=== PATIENT | female | born 1950 | race Caucasian/White ===

== ENCOUNTER → 2021-03-02 | Day surgery (SDC) | payer OTHER ==
[~2021-03-02] VITALS: Ht 154.9 cm; Wt 46.7 kg
[~2021-03-02] MED LIST: ASPIRIN EC81 MG PO; CALCIUM500 M1 PO; EUTHYROX75 MCG PO; LOSARTAN POTASS25 MG PO; MVI-1210 ML PO; VITAMIN D310 MC2 PO
== END | disposition home or self-care (01) ==
LOC: FAS 12:40
DX: H26.493 Other secondary cataract, bilateral (principal); I10 Essential (primary) hypertension; G43.909 Migraine, unspecified, not intractable, without status migrainosus

== ENCOUNTER → 2021-03-30 | Day surgery (SDC) | payer OTHER ==
[~2021-03-30] VITALS: Ht 154.9 cm; Wt 46.7 kg
== END | disposition home or self-care (01) ==
LOC: FAS 12:45
DX: H26.493 Other secondary cataract, bilateral (principal); I10 Essential (primary) hypertension